=== PATIENT | male | born 1990 | race Two or more races ===

== ENCOUNTER 2025-03-15 19:06 | Emergency (ER) | payer OTHER, SELFPAY ==
[2025-03-15 19:47] VITALS: BP 125/85; PULSE 98; RESP 18; TEMP 37; O2SAT 97; BMI 26.1
--- NOTE | 2025-03-15 20:07 | PD.EDRME ---
Rapid Medical Screening Exam RME Arrival date/time: 03/15/25 19:06 Chief Complaint: General Adult/Misc Complain Time Seen by Provider: 03/15/25 19:24 Vital signs: Vital Signs Temperature 98.6 F 03/15/25 19:47 Pulse Rate 98 03/15/25 19:47 Respiratory Rate 18 03/15/25 19:47 Blood Pressure 125/85 H 03/15/25 19:47 Pulse Oximetry (%) 97 03/15/25 19:47 Oxygen Delivery Method Room Air 03/15/25 19:47 Vital signs reviewed by provider: Yes RME Narrative: 34-year-old male presents to the ED with a complaint of possible esophageal foreign body. He states he was eating a rib, swallowed the meat and is now unable to keep anything down. He has tried drinking water but it immediately comes back up.
--- NOTE | 2025-03-15 20:10 | XR_ITS ---
Examination: PA lateral chest 2 views Technique: Upright PA lateral chest 2 views Exam date and time: March 15 2025.33 hours Comparison 08/04/2021 Indications: Patient ingested foreign body today. Findings: Normal heart size No aspiration pneumonia. No opaque foreign body Intact osseous structures Impression: No opaque foreign body
--- NOTE | 2025-03-15 20:10 | XR_ITS ---
Examination: AP lateral soft tissue neck 2 views Technique one AP lateral soft tissue neck 2 views Exam date and time: March 20, 2025 at 2035 hrs. Indications: Ingested foreign body today Findings: Normal epiglottis. No opaque foreign body seen. No prevertebral soft tissue prominence Impression: No opaque foreign body seen
[2025-03-15] MEDS: GLUCAGON INJ 1 MG VIAL IM (20:56)
--- NOTE | 2025-03-15 21:12 | PD.EDADULT ---
ED General RME/HPI General Chief complaint: General Adult/Misc Complain Stated complaint: THINKS FOOD STUCKED IN ESOPHAGUS Time Seen by Provider: 03/15/25 19:24 Arrival date/time: 03/15/25 19:06 CC: Unable to swallow secondary for body sensation or ball in the upper abdomen. Patient states she has had multiple episodes where he has eaten a large volume food after which she has a ball-like sensation at the bottom swallowing tube , and then it slowly relieves itself spontaneously. Today however after eating ribs for the third time in 48 hours, he is stated that since 1 PM this afternoon he is unable to swallow anything. He states his saliva and everything else he tries to swallow accumulates in his swallowing tube, and then he he vomits it back up. Patient is awake alert oriented nontoxic-appearing not in any acute distress with stable vital signs. RME / HPI RME / HPI narrative: 34-year-old male presents to the ED with a complaint of possible esophageal foreign body. He states he was eating a rib, swallowed the meat and is now unable to keep anything down. He has tried drinking water but it immediately comes back up. Related Data Home Medications ?Medication ?Instructions ?Recorded ?Confirmed albuterol sulfate 2 puff inhalation PRN PRN Wheezing 07/14/19 08/05/21 Allergies Allergy/AdvReac Type Severity Reaction Status Date / Time No Known Allergies Allergy Verified 03/15/25 19:08 Review of Systems Review of Systems Narrative Review of Systems: GEN: No fever, no chills, no weight loss EYES: No discharge, no visual changes, no pain HEENT: No ear pain, no congestion, no sore throat PULM: No shortness of breath, no cough, no congestion CV: No chest pain, no dyspnea on exertion, no palpitations GI: No nausea, no vomiting, no diarrhea, no pain, no constipation : No frequency, no urgency, no dysuria MUSC/SKEL: No joint pain, no back pain SKIN: No rash PSYCH: No hallucinations, no depression HEME/LYMPH: No easy bleeding or bruising tendencies NEURO: No weakness, no headache Past Medical History Past Medical History NEUROLOGIC: Negative Neurological Disorders CARDIAC: Negative Cardiac Disorders or Congestive Heart Failure RESPIRATORY: Positive Asthma; Negative Chronic Obstructive Pulmonary Disease (COPD) GENITOURINARY: Negative Genitourinary Disorders or Renal Disease MUSCULOSKELETAL: Negative Musculoskeletal Disorders ENDOCRINE: Negative Endocrine Disorders, Diabetes Mellitus Type 1 or Diabetes Mellitus Type 2 HEMATOLOGIC: Negative Blood Disorders Surgical History SURGICAL: Positive Oral Surgery (Jaw sx, states titanium plate inserted) Social History SMOKING STATUS: Never smoker ED Exam Narrative Physical exam: [General: Not in any acute distress Head normocephalic HEENT: Within acceptable limits Neck is supple nontender swallow symmetrical phonation is normal no stridor with auscultation. However after accumulation of fluid and secretions in the esophagus the patient vomits it all back up as evidenced by a vomitus bag full of saliva. Chest equal chest rise nontender to palpation Respiratory: Clear to auscultation no wheezes crackles or rubs CV: Rate rhythm is regular no murmurs rubs or clicks Abdomen is soft nontender no masses positive bowel sounds all 4 quadrants Back: No CVA tenderness no spinous process tenderness from cervical spine thoracic and lumbar spine Skin: Intact no petechiae rash induration ulceration or crepitus Extremities: Moving all extremity against resistance cap refill less than 2 seconds neurosensory intact Neuro: Awake alert oriented x3 Glascow coma 15 no focal deficits] Course Course Course Narrative: Reassessment of this patient at 2210, the patient states he can swallow a small amount of his saliva, however patient took a mouthful of water was unable to swallow it. At this time the patient is stable nontoxic-appearing advised the patient to discharge home and return in the morning for reevaluation particularly if the symptoms are unrelieved otherwise they can follow-up with the GI doctor on outpatient basis. Quality Measures none Orders Category Date Time Status XR chest 2V Stat Exams 03/15/25 20:10 Completed XR soft tissue neck Stat Exams 03/15/25 20:10 Completed Glucagon Inj Med 03/15/25 20:50 Discontinued 1 mg IM X1 ONE Vital Signs Vital signs: Vital Signs Temperature 98.6 F 03/15/25 19:47 Pulse Rate 98 03/15/25 19:47 Respiratory Rate 18 03/15/25 19:47 Blood Pressure 125/85 H 03/15/25 19:47 Pulse Oximetry (%) 97 03/15/25 19:47 Oxygen Delivery Method Room Air 03/15/25 19:47 Discharge Plan Plan Patient Disposition: HOME (Self Care) Patient condition on transfer: Stable Prescriptions/Referrals Prescriptions/Med Rec: No Action albuterol sulfate 2 puff inhalation PRN PRN (Reason: Wheezing) Referrals: No Primary/Family,Physician [Primary Care Provider] - In 1 week Mg Cardoso MD [Physician] - In 1 week Problem List Clinical Impression: Esophageal obstruction Patient/Caregiver Discharge Instructions Education Materials: Anatomy of the Digestive System Additional Instructions: Rest if you can swallow drink water or fluids only. If there is a worsening of symptoms or unchanged symptoms return to the emergency room in the morning for reevaluation. Otherwise follow-up with the GI specialist listed above on an outpatient basis. Print Language: Ugandan Stand Alone Forms: [employer] Info., Work/School Release, Patient Portal Info Letter PA/CHARACTER IMPERSONATOR Supervising Physician PA/CHARACTER IMPERSONATOR Supervising Physician: Bud Bansal ENP [facility] Imaging Imaging Interpretation(s): Soft tissue neck is negative as interpreted by me read by radiology. Chest x-ray as interpreted by me read by radiology as negative for foreign body. Medication Administration(s) Medication Administration History Discontinued Medications Glucagon (Glucagon Inj 1 Mg Vial) 1 mg IM X1 ONE Stop: 03/15/25 20:51 Last Admin: 03/15/25 20:56 Dose: 1 mg Documented By: NANCI
[2025-03-15 22:21] VITALS: RESP 16
== END 2025-03-15 22:22 | disposition home or self-care (01) ==
PROVIDERS: Emergency Provider Emergency Medicine
DX: K22.2 Esophageal obstruction (principal)
CPT/HCPCS: 70360; 71046; 96372; 99283; J1610

== ENCOUNTER 2025-03-16 08:32 | Emergency (ER) | payer OTHER, SELFPAY ==
[2025-03-16 08:35] VITALS: BMI 26.1
[2025-03-16 08:43] VITALS: BP 123/84; PULSE 71; RESP 18; TEMP 37.1; O2SAT 95
--- NOTE | 2025-03-16 09:06 | PC.NURSE ---
ASSUME CARE FOR THIS 34YEAR OLD MALE WITH CHIEF C/O OF NOT BEEN ABLE TO DRINK WATER. PT REPORTS THAT HE EAT STAKE LAST NIGHT AND FELT LIKE THE MEAT GOT STUCK IN HIS LOWER ESOPHAGUS SO HE CAME IN LAST NIGHT FOR EVAL. PT REPORTS THAT HE GOT AN X-RAY DONE THE DOCTOR TOLD HIM THAT THERE WAS NOTHING THERE AND ONLY HAVE HIM A PAIN SHOT AND TOLD HIM TO COME BACK OF HER FELT WORSE. PT REPORTS THAT TODAY HE TRIED TO DRINK WATER AND IT CAME BACK UP AND WAS UNABLE TO SWALLOW AND VOMITED IT. ON ASSESSMENT THE PT HAD CLEARED LUNG SOUNDS AND NO STRIDOR NOTED, PT NOT IN ANY RESPIRATORY DISTRESS, GCS OF 15, A&OX4. PT WAS GIVEN UPDATE ON PLAN OF CARE. CALL LIGHT WITHIN REACH.
--- NOTE | 2025-03-16 09:33 | PD.EDRECHK ---
ED Recheck Abnl Lab Rx-RME/HPI General Chief Complaint: General Adult/Misc Complain Stated Complaint: ESOPHAGEAL OBSTRUCTION X 1 DAY; HERE YESTERDAY Time Seen by Provider: 03/16/25 08:45 Arrival date/time: 03/16/25 08:32 Limitations: no limitations RME / HPI RME / HPI narrative: DR. HOOPER MAIN ED EVALUATION: 34 year old male with past medical history significant for asthma presents to the Emergency Department accompanied by his with complaint of problems swallowing possibly an esophageal obstruction; patient was seen here for the same thing. He states, his symptoms started when he was eating a rib, swallowed the meat and then had trouble keeping anything down. He states that when he would drink water he would immediately spit it back up. However, here he was able to drink half a water bottle. He states he does feel better compared to yesterday; he was given medications yesterday. Related Data Home Medications ?Medication ?Instructions ?Recorded ?Confirmed albuterol sulfate 2 puff inhalation PRN PRN Wheezing 07/14/19 08/05/21 Allergies Allergy/AdvReac Type Severity Reaction Status Date / Time No Known Allergies Allergy Verified 03/16/25 08:39 Review of Systems Review of Systems Systems Reviewed: All systems reviewed, normal except as documented Narrative Review of Systems: GEN: No fever, no chills, no weight loss EYES: No discharge, no visual changes, no pain HEENT: No ear pain, no congestion, no sore throat; + problems swallowing PULM: No shortness of breath, no cough, no congestion CV: No chest pain, no dyspnea on exertion, no palpitations GI: No nausea, no vomiting, no diarrhea, no pain, no constipation : No frequency, no urgency and no dysuria MUSC/SKEL: No joint pain, no back pain SKIN: No rash PSYCH: No hallucinations, no depression HEME/LYMPH: No easy bleeding or bruising tendencies NEURO: No weakness, no headache Past Medical History Past Medical History RESPIRATORY: Positive Asthma Surgical History SURGICAL: Positive Oral Surgery Social History SMOKING STATUS: Never smoker SUBSTANCE USE: does not use ALCOHOL: Never ED Exam General Limitations: Present no limitations General appearance: Present alert and in no apparent distress Head Head exam: Present atraumatic, normocephalic and normal inspection Eye Eye exam: Present normal appearance, PERRL and EOMI ENT ENT exam: Present normal exam, normal oropharynx and mucous membranes moist Neck Neck exam: Present normal inspection, full ROM and trachea midline Chest Chest inspection: Present normal inspection and symmetric chest wall rise Respiratory Respiratory exam: Present normal lung sounds bilaterally Cardiovascular Cardiovascular exam: Present regular rate, normal rhythm and normal heart sounds Abdominal Exam Abdominal exam: Present soft and normal bowel sounds Extremities Exam Extremities exam: Present normal inspection and full ROM Back Exam Back exam: Present normal inspection and full ROM Neurological Exam Neurological exam: Present alert, oriented X3 and CN II-XII intact Psychiatric Psychiatric exam: Present normal affect and normal mood Skin Skin exam: Present warm, dry, intact and normal color Course Quality Measures none Vital Signs Vital signs: Vital Signs Temperature 98.8 F 03/16/25 08:43 Pulse Rate 71 03/16/25 08:43 Respiratory Rate 18 03/16/25 08:43 Blood Pressure 123/84 03/16/25 08:43 Pulse Oximetry (%) 95 03/16/25 08:43 Oxygen Delivery Method Room Air 03/16/25 08:43 Recheck / Abnormal Lab / Rx MDM Narrative MDM Narrative:: Nathalie Baca am scribing for and in the presence of Dr. Hooper. Patient data External records reviewed:: [facility] previous records (Reviewed last ED visit dated 03/15/25, discharged with the following: Esophageal obstruction) Clinical information provided by:: patient and spouse () Social determinants that could affect healthcare access:: none Patient has the following chronic illnesses:: Asthma How is presenting disease/condition affected by chronic disease/condition?: uneffected by Evaluation data The following diagnostics were reviewed and interpreted by me:: other (specify) (none) Lab and/or radiology exams considered but not ordered:: none Interpretation Summary: n/a Medications / Prescriptions Medications or Prescriptions considered but not ordered:: none Medication administrations:: none Consultations Consultation(s) initiated? (list below): No Diagnosis Recheck Differential Diagnosis: other (recheck, esophageal obstruction) Most likely diagnosis given after review of the tests above:: Esophageal obstruction Admission Indicated Admission indicated?: not indicated Admission Request Was there a request for admission?: No Disposition Plan Disposition Plan: Discharge Discharge Attestation Discharge Attestation: The patient and all family members were given an opportunity to ask questions and understood the discharge instructions. Discharge instructions specifically effects, indications for sooner follow up or return to the emergency department, and the expected course of current diagnosis. Patient condition: Stable Discharge Plan Plan Patient Disposition: HOME (Self Care) Patient condition on transfer: Stable Prescriptions/Referrals Prescriptions/Med Rec: No Action albuterol sulfate 2 puff inhalation PRN PRN (Reason: Wheezing) Referrals: No Primary/Family,Physician [Primary Care Provider] - In 1 week Problem List Clinical Impression: Esophageal obstruction Patient/Caregiver Discharge Instructions Additional Instructions: Please follow-up with your primary care physician within a week. Return to the Emergency Department as needed. Print Language: Tajik Stand Alone Forms: [employer] Info., Work/School Release, Patient Portal Info Letter
== END 2025-03-16 09:58 | disposition home or self-care (01) ==
PROVIDERS: Emergency Provider Family Medicine
DX: K22.2 Esophageal obstruction (principal)
CPT/HCPCS: 99281